=== PATIENT | female | born 1940 | race Hispanic/Latino ===

== ENCOUNTER → 2018-05-03 | Outpatient (CLI) | payer MEDICARE ==
--- NOTE | 2018-05-04 12:18 | Diagnostic Imaging Report ---
PROCEDURE:ABDOMINAL ULTRASOUND COMPARISON:None. INDICATIONS:ABDOMEN PAIN FINDINGS: Liver: Measures 11.9 cm. Normal hepatic parenchymal echogenicity. No focal mass. Main portal vein: Measures 0.7 cm. Hepatopedal flow. Gallbladder: No gallbladder wall thickening, pericholecystic fluid, or stone. Common Bile Duct: Measures 0.5 cm. No echogenic filling defect. Sonographic Treadwell's sign: Negative. Right kidney: Measures 8 cm. No solid or cystic mass, echogenic calculi, or hydronephrosis. Normal parenchymal echogenicity. Left kidney: Measures 8.1 cm. No solid mass, echogenic calculi, or hydronephrosis. Normal parenchymal echogenicity. There is a 1.6 cm anechoic simple appearing cyst in the inferior pole of the left kidney. Spleen: Measures 7.5 cm. Pancreas: Obscured by overlying bowel gas. Inferior vena cava: Normal. Aorta: Normal. Ascites: None. CONCLUSION: No acute sonographic abnormality. Dictated by: MELVA LIN M.D. on 05/03/2018 at 9:04 Electronically approved by: MELVA LIN M.D. on 05/03/2018 at 9:04
== END ==
LOC: US 07:32
PROVIDERS: ATTEND Family Medicine
DX: R10.9 Unspecified abdominal pain (principal)
CPT/HCPCS: 76700

== ENCOUNTER → 2018-06-21 | Outpatient (CLI) | payer MEDICARE ==
--- NOTE | 2018-06-21 14:45 | Diagnostic Imaging Report ---
Exam: Lumbar spine AP lateral oblique History: Back pain Comparison: None. Findings: No fracture. Degenerative anterolisthesis of L4 on L5. Multilevel degenerative endplate change with mild narrowing at L3-L4 and L5-S1. 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 Vascular calcifications. 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 Sandoval Boogie M.D. on 06/21/2018 2:42 PM
== END ==
LOC: RAD 13:14
PROVIDERS: ATTEND Family Medicine
DX: M54.5 Low back pain (principal)
CPT/HCPCS: 72110